=== PATIENT | female | born 1980 | race Caucasian/White ===

== ENCOUNTER 2018-02-28 07:46 | Day surgery (SDC) | payer OTHER ==
[2018-02-28] MEDS ORDERED: Ringers Lactate 1,000 ML IV ONE (08:00)
[2018-02-28 08:08] LABS: Specific Gravity 1.025 (1.005-1.030)
[2018-02-28] MEDS ORDERED: PROPOFOL 200 MG/20 ML VIAL IV ONE (08:26)
[2018-02-28] MEDS ORDERED: MIDAZOLAM HCL 2 MG/2 ML INJ ONE (08:27)
[2018-02-28] MEDS ORDERED: FENTANYL CITR 100 MCG/2 ML ONE (08:27)
[2018-02-28] MEDS ORDERED: LIDOCAINE 2% MPF 5 ML VIAL ONE (08:27)
[2018-02-28] MEDS ORDERED: ONDANSETRON HCL 40 MG/20 ML VIAL ONE (08:29)
[2018-02-28] MEDS: LIDOCAINE 1% W/EPI 1:100,000 MDV 50 ML VIAL ONE ×2 (08:51→09:13)
--- NOTE | 2018-02-28 16:46 | OP ---
Date of Procedure: 02/28/2018 Surgeon: eMrna Levine MD Preoperative Diagnosis: Menorrhagia, dysmenorrhea, and deep dyspareunia. Postoperative Diagnoses: Menorrhagia, dysmenorrhea, and deep dyspareunia. Procedures Performed: Hysteroscopy, dilation and curettage, followed by Mirena levonorgestrel IUD pl acement. Anesthesia: General with LMA. Specimens: Endometrial curettings. Complications: No complications. Drains: No drains. Condition: The patient is stable. Findings: Uterus anteflexed 10 cm for sounding length. IUD placed without problems. Cavity empty. Endometrium thick. Description Of Procedure: After informed consent was verified, patient was taken back to the OR, juliet terri in a supine fashion on the operating table after MAC was given. Attempted to start a pelvic exam after she was placed in dorsal lithotomy position using Alonzo stirrups. The patient was very uncomf ortable and would not continue with being still, so converted to general. Speculum was placed to exp ose the cervix. Prep x3 with Betadine was done. Anterior lip grasped with 2 Allis clamps. Cervix w as dilated slightly at the external os with the tip of a hemostat. Diagnostic SlimLine hysteroscope was used to enter the cervical canal, and uterine cavity was entered under direct vision. The cavity was anteflexed, sounding to 10 cm under direct vision. Cavity was empty. Both tubal ostia were vis ualized. After the scope was removed, #2 curette was used for performing the curettage. Specimens h anded off for permanent pathology. The IUD was taken, loaded into the cannula, then was set at the s ounding length of 10 cm, introduced into the uterine cavity till the fundus was reached, withdrawn ba ck slightly, and the IUD was deployed without any problems. The strings were trimmed to 3 cm. There was no need for further hysteroscopy at this point. The ins truments were removed. Instrument, needle, and sponge counts were done and were correct at the end o f the case. The patient tolerated the procedure well. She will follow up with me in 1 month for IUD check. She will be called on the path at the endometrial curettings. TAMMY/MALA Voice ID: [id number] Report ID: [id number]
== END 2018-02-28 11:00 | disposition home or self-care (01) ==
LOC: OR 07:46
PROVIDERS: ATTEND Obstetrics & Gynecology
PROC: 0UH97HZ Insertion of Contraceptive Device into Uterus, Via Natural or Artificial Opening (ICD-10-PCS; 2018-02-28)
PROC: 0UJD8ZZ Inspection of Uterus and Cervix, Via Natural or Artificial Opening Endoscopic (ICD-10-PCS; principal; 2018-02-28 09:00)
PROC: 0UDB7ZX Extraction of Endometrium, Via Natural or Artificial Opening, Diagnostic (ICD-10-PCS; 2018-02-28 09:00)
DX: N92.1 Excessive and frequent menstruation with irregular cycle (principal); N94.5 Secondary dysmenorrhea; N94.12 Deep dyspareunia
CPT/HCPCS: 81025; 88305; J2250; J2405; J3010